=== PATIENT | female | born 1980 | race Hispanic/Latino ===

== ENCOUNTER 2018-11-17 21:50 | Emergency (ER) | payer MEDICAID, OTHER ==
--- NOTE | 2018-11-17 22:40 | Emergency Department Report ---
<GILLIAN BRADSHAW - Last Filed: 11/18/18 04:31> ED Psych HPI - General Chief Complaint: Psych Stated Complaint: MH EVALUATION Time Seen by Provider: 11/17/18 22:15 - Related Data Home Medications Medication Instructions Recorded Confirmed Last Taken Amitriptyline HCl 25 mg PO HS 11/18/18 11/18/[address] [Collins OGMEZ] 500 mg PO BID 11/18/18 11/18/18 Unknown Gabapentin [Gralise] 600 mg PO TID 11/18/18 11/18/18 Unknown QUEtiapine [SEROquel] 100 mg PO HS 11/18/18 11/18/18 Unknown Allergies Allergy/AdvReac Type Severity Reaction Status Date / Time No Known Allergies Allergy Unverified 06/18/14 17:07 ED Past Medical Hx - Medications Home Medications: Home Medications Medication Instructions Recorded Confirmed Last Taken Type Amitriptyline HCl 25 mg PO HS 11/18/18 11/18/[address] [Collins GOMEZ] 500 mg PO BID 11/18/18 11/18/18 Unknown History Gabapentin [Gralise] 600 mg PO TID 11/18/18 11/18/18 Unknown History QUEtiapine [SEROquel] 100 mg PO HS 11/18/18 11/18/18 Unknown History ED Medical Decision Making - Lab Data Result diagrams: 11/17/18 22:38 11/17/18 22:38 - Medical Decision Making Patient given outpatient services for follow-up ED Disposition Clinical Impression: Acute paranoia, Drug-induced paranoid state Disposition: DC-01 TO HOME OR SELFCARE Is pt being admited?: No Does the pt Need Aspirin: No Condition: Stable Additional Instructions: return if worse or if hearing voices telling her to harm himself or others Also return if there are any auditory or visual hallucinations Referrals: GREGORY ARTIS MD [Primary Care Provider] - 3-5 Days [facility] [Outside] - 3-5 Days Time of Disposition: 04:33 <JOEY HOLLIS - Last Filed: 11/18/18 20:54> ED Psych HPI - General Source: patient, family Mode of arrival: Ambulatory - History of Present Illness Initial Comments: 38-year-old female with history of bipolar disorder, schizophrenia, seizure disorder presents to ED with paranoia over the last week. Patient recently restarted amitriptyline, which she has not taken in the last 4 months because it would make her "feel funny." Significant other states patient has been extremely paranoid; believes he is cheating on her, she also believes someone else is in the house watching her. Patient reports visual and auditory hallucinations, however will not say what they are. When asked if she is having any suicidal or homicidal ideations, patient responds, "I don't know I don't know." Patient denied SI and HI to her nurse. MD Complaint: other (paranoia) -: week(s) (1) Associated Psychiatric Symptoms: auditory hallucinations, visual hallucinations Quality: constant Improves With: none Worsens With: none Context: new medication(s) (amitriptyline) Associated Symptoms: denies other symptoms Treatments Prior to Arrival: none ED Review of Systems ROS: Stated complaint: MH EVALUATION Other details as noted in HPI Comment: All other systems reviewed and negative Psychiatric: auditory hallucinations, visual hallucinations, other (reports paranoia; pt vague with whether or not she is homicidal or suicidal) ED Past Medical Hx - Surgical History Additional Surgical History: tubal ligation. cyst removed from tailbone - Social History Smoking Status: Current Every Day Smoker Substance Use Type: Alcohol ED Physical Exam - General Limitations: No Limitations General appearance: alert, in no apparent distress - Head Head exam: Present: atraumatic, normocephalic - Eye Eye exam: Present: normal appearance - ENT ENT exam: Present: mucous membranes moist - Neck Neck exam: Present: normal inspection - Respiratory Respiratory exam: Present: normal lung sounds bilaterally. Absent: respiratory distress - Cardiovascular Cardiovascular Exam: Present: regular rate, normal rhythm - GI/Abdominal GI/Abdominal exam: Absent: distended - Extremities Exam Extremities exam: Present: normal inspection - Neurological Exam Neurological exam: Present: alert, oriented X3 - Psychiatric Psychiatric exam: Present: anxious - Skin Skin exam: Present: warm, dry, intact, normal color ED Course Vital Signs 11/17/18 11/17/18 11/18/18 22:19 23:01 01:26 Temperature 98.5 F 98.6 F Pulse Rate 83 84 Respiratory 18 18 20 Rate Blood Pressure 99/66 Blood Pressure 120/73 [Right] O2 Sat by Pulse 96 96 100 Oximetry ED Medical Decision Making - Lab Data Result diagrams: 11/17/18 22:38 11/17/18 22:38 - Medical Decision Making 38 yo F brought in by family for mental health evaluation. Pt has been paranoid, reportedly having seizures, and is noncompliant with medications. No seizure activity here in ED. Depakote level was low, so pt was given a dose of depakote. Pt denied SI or HI during triage, but would not answer when I asked. Labs unremarkable. Family at bedside. Patient medically clear for mental health evaluation. Will dispo per psych. - Differential Diagnosis bipolar, schizophrenia, paranoia Critical care attestation.: If time is entered above; I have spent that time in minutes in the direct care of this critically ill patient, excluding procedure time.
[2018-11-17 22:53] LABS: Basophils # (Auto) 0.1 K/mm3 (0.0-0.1); Basophils % (Auto) 1.1 % (0.0-1.8); Eosinophils # (Auto) 0.2 K/mm3 (0.0-0.4); Eosinophils % (Auto) 2.2 % (0.0-4.3); Hematocrit 42.4 % (30.3-42.9); Lymphocytes # (Auto) 3.3 K/mm3 (1.2-5.4); Lymphocytes % (Auto) 38.8 % (13.4-35.0); Mean Corpuscular HGB Conc 33 % (30-34); Mean Corpuscular Volume 82 fl (79-97); Monocytes # (Auto) 0.4 K/mm3 (0.0-0.8); Monocytes % (Auto) 4.5 % (0.0-7.3); Platelet Count 314 K/mm3 (140-440); Red Blood Count 5.18 M/mm3 (3.65-5.03); Red Cell Distribution Width 16.2 % (13.2-15.2)
[2018-11-17 23:14] LABS: BUN/Creatinine Ratio 11; Blood Urea Nitrogen 9 mg/dL (7-17); Calcium 9.4 mg/dL (8.4-10.2); Hemolysis Index 8
[2018-11-17 23:34] LABS: Benzodiazepines Screen,Urine PRESUMPTIVE NEGATIVE; Cocaine Screen,Urine PRESUMPTIVE NEGATIVE; Methadone Screen,Urine PRESUMPTIVE NEGATIVE; Opiate Screen,Urine PRESUMPTIVE NEGATIVE
[2018-11-17 23:47] LABS: Amphetamine Screen,Urine PRESUMPTIVE POSITIVE; Cannabinoid Screen,Urine PRESUMPTIVE POSITIVE
[2018-11-18] MEDS ORDERED: IBUPROFEN PO ONE (01:32)
[2018-11-18 02:34] LABS: HCG Qualitative,Urine Negative (Negative)
[2018-11-18 02:40] LABS: Bilirubin,Urine NEG (Negative); Blood,Urine NEG (Negative); Color,Urine Yellow (Yellow); Mucus,Urine 3+ /HPF
[2018-11-18 03:24] VITALS: BP 120/73
== END 2018-11-18 04:43 | disposition home or self-care (01) ==
LOC: ED 21:50
DX: F22 Delusional disorders (principal); F17.200 Nicotine dependence, unspecified, uncomplicated; Z79.899 Other long term (current) drug therapy; F31.9 Bipolar disorder, unspecified; F20.9 Schizophrenia, unspecified; G40.909 Epilepsy, unspecified, not intractable, without status epilepticus
CPT/HCPCS: 36415; 80048; 80164; 80307; 80320; 81001; 81025; 85025; 87086; G0480

== ENCOUNTER 2019-01-01 15:24 | Emergency (ER) | payer OTHER ==
--- NOTE | 2019-01-01 15:45 | Emergency Department Report ---
Blank Doc - Documentation Documentation: This is a 38-year-old female that presents with lethargy and does not want to answer questions. HX of bipolar and schizophrenia. Mother stated has been talking to self and doing sign languages. Stated has not been taking her medications. Denies any SI/HI. Exam: Patient is A/O x3. Answering all questions and demands. This initial assessment/diagnostic orders/clinical plan/treatment(s) is/are subject to change based on patient's health status, clinical progression and re- assessment by fellow clinical providers in the ED. Further treatment and workup at subsequent clinical providers discretion. Patient/guardians urged not to elope from the ED as their condition may be serious if not clinically assessed and managed. Initial orders include: 1- Patient sent to MAIN ED for further evaluation and treatment 2- seam sewer was notified to have patient be brought back [facility]. 3- RN was notified to keep patient as close range and observation until room available
--- NOTE | 2019-01-01 16:42 | Emergency Department Report ---
HPI - General Chief Complaint: Psych Time Seen by Provider: 01/01/19 15:41 - HPI HPI: Room 11 The patient is a 38-year-old female presenting with a chief complaint of odd behavior. The patient presents with her mother who states that she was informed of the patient began behaving on yesterday. She states that the patient wasn't talking as much as she normally does or refusing to communicate. The patient also was making gesticulations with her hands as though she was using sign language. Patient intermittently answers questions and interview but denies suicidal or homicidal ideation. Patient denies visual hallucinations but will not answer when asked about auditory hallucinations. The mother states patient has had a similar presentation in the past for which she was [facility] Past Medical Hx - Past Medical History Hx Seizures: Yes Additional medical history: Schizophrenia/Bipolar - Surgical History Past Surgical History?: No Additional Surgical History: tubal ligation. cyst removed from tailbone - Family History Family history: no significant - Social History Smoking Status: Current Every Day Smoker Substance Use Type: Alcohol (rarely), Marijuana - Medications Home Medications: Home Medications Medication Instructions Recorded Confirmed Last Taken Type Amitriptyline HCl 25 mg PO HS 11/18/18 01/01/[address] [Collins GOMEZ] 1,000 mg PO BID 11/18/18 01/01/19 Unknown History Gabapentin [Gralise] 300 mg PO BID 11/18/18 01/01/19 Unknown History QUEtiapine [SEROquel] 100 mg PO HS 11/18/18 01/01/19 Unknown History ED Review of Systems ROS: Stated complaint: PYSCH Other details as noted in HPI Constitutional: no symptoms reported Eyes: denies: eye pain ENT: denies: throat pain Respiratory: no symptoms reported Cardiovascular: denies: chest pain Endocrine: no symptoms reported Gastrointestinal: denies: abdominal pain Neurological: denies: headache Psychiatric: denies: visual hallucinations, homicidal thoughts, suicidal thoughts Physical Exam - Physical Exam Vital Signs: Vital Signs 01/01/19 15:42 Temperature 98.3 F Pulse Rate 84 Respiratory 18 Rate Blood Pressure 109/80 O2 Sat by Pulse 97 Oximetry Physical Exam: GENERAL: The patient is well-developed well-nourished female lying on stretcher not appearing to be in acute distress. Response verbally occasionally at other times attempts to use her hands HEENT: Normocephalic. Atraumatic. Extraocular motions are intact. Patient has moist mucous membranes. NECK: Supple. Trachea midline CHEST/LUNGS: Clear to auscultation. There is no respiratory distress noted. HEART/CARDIOVASCULAR: Regular. There is no tachycardia. There is no gallop rub or murmur. ABDOMEN: Abdomen is soft, nontender. Patient has normal bowel sounds. There is no abdominal distention. SKIN: There is no rash. There is no edema. There is no diaphoresis. NEURO: The patient is awake and alert. The patient is intermittently danny ative. The patient has no focal neurologic deficits. The patient has normal speech MUSCULOSKELETAL:There is no evidence of acute injury. ED Course Vital Signs 01/01/19 15:42 Temperature 98.3 F Pulse Rate 84 Respiratory 18 Rate Blood Pressure 109/80 O2 Sat by Pulse 97 Oximetry ED Medical Decision Making - Lab Data Result diagrams: 01/01/19 17:20 01/01/19 17:20 Laboratory Tests 01/01/19 01/01/19 01/01/19 17:20 17:20 17:20 WBC 7.2 RBC 4.79 Hgb 13.4 Hct 40.1 MCV 84 MCH 28 MCHC 33 RDW 17.1 H Plt Count 255 Lymph % (Auto) 32.3 [place] % (Auto) 6.5 Eos % (Auto) 2.6 Baso % (Auto) 1.2 Lymph # 2.3 [place] # 0.5 Eos # 0.2 Baso # 0.1 Seg Neutrophils % 57.4 Seg Neutrophils # 4.2 Sodium 143 Potassium 4.2 Chloride 107.2 H Carbon Dioxide 20 L Anion Gap 20 BUN 18 H Creatinine 0.7 Estimated GFR > 60 BUN/Creatinine Ratio 26 Glucose 89 Calcium 9.3 HCG, Qual Urine Color Urine Turbidity Urine pH Ur Specific [place] Urine Protein Urine Glucose (UA) Urine Ketones Urine Blood Urine Nitrite Urine Bilirubin Urine Urobilinogen Ur Leukocyte Esterase Urine WBC (Auto) Urine RBC (Auto) U Epithel Cells (Auto) Urine Mucus Salicylates < 0.3 L Urine Opiates Screen Urine Methadone Screen Acetaminophen Ur Barbiturates Screen Valproic Acid 29.3 L Ur Phencyclidine Scrn Ur Amphetamines Screen U Benzodiazepines Scrn Urine Cocaine Screen U Marijuana (THC) Screen Drugs of Abuse Note Plasma/Serum Alcohol 01/01/19 01/01/19 01/01/19 17:20 17:20 17:20 WBC RBC Hgb Hct MCV MCH MCHC RDW Plt Count Lymph % (Auto) [place] % (Auto) Eos % (Auto) Baso % (Auto) Lymph # [place] # Eos # Baso # Seg Neutrophils % Seg Neutrophils # Sodium Potassium Chloride Carbon Dioxide Anion Gap BUN Creatinine Estimated GFR BUN/Creatinine Ratio Glucose Calcium HCG, Qual Negative Urine Color Urine Turbidity Urine pH Ur Specific [place] Urine Protein Urine Glucose (UA) Urine Ketones Urine Blood Urine Nitrite Urine Bilirubin Urine Urobilinogen Ur Leukocyte Esterase Urine WBC (Auto) Urine RBC (Auto) U Epithel Cells (Auto) Urine Mucus Salicylates Urine Opiates Screen Urine Methadone Screen Acetaminophen < 5.0 L Ur Barbiturates Screen Valproic Acid Ur Phencyclidine Scrn Ur Amphetamines Screen U Benzodiazepines Scrn Urine Cocaine Screen U Marijuana (THC) Screen Drugs of Abuse Note Plasma/Serum Alcohol < 0.01 01/01/19 01/01/19 Unknown Unknown WBC RBC Hgb Hct MCV MCH MCHC RDW Plt Count Lymph % (Auto) [place] % (Auto) Eos % (Auto) Baso % (Auto) Lymph # [place] # Eos # Baso # Seg Neutrophils % Seg Neutrophils # Sodium Potassium Chloride Carbon Dioxide Anion Gap BUN Creatinine Estimated GFR BUN/Creatinine Ratio Glucose Calcium HCG, Qual Urine Color Delmy Urine Turbidity Slightly-cloudy Urine pH 5.0 Ur Specific [place] 1.032 H Urine Protein 30 mg/dl Urine Glucose (UA) Neg Urine Ketones Tr Urine Blood Lg Urine Nitrite Neg Urine Bilirubin Neg Urine Urobilinogen < 2.0 Ur Leukocyte Esterase Tr Urine WBC (Auto) 9.0 H Urine RBC (Auto) 15.0 U Epithel Cells (Auto) 7.0 Urine Mucus 2+ Salicylates Urine Opiates Screen Presumptive negative Urine Methadone Screen Presumptive negative Acetaminophen Ur Barbiturates Screen Presumptive negative Valproic Acid Ur Phencyclidine Scrn Presumptive negative Ur Amphetamines Screen Presumptive negative U Benzodiazepines Scrn Presumptive negative Urine Cocaine Screen Presumptive negative U Marijuana (THC) Screen Presumptive positive Drugs of Abuse Note Disclamer Plasma/Serum Alcohol - Radiology Data Radiology results: report reviewed (CT head), image reviewed (CT head) [facility] [address] [place] [address] Cat Scan Report Signed Patient: ADONIS WATERMAN MR#: [id number] : [birth year] Acct:[id number] Age/Sex: 38 / F ADM Date: 01/01/19 Loc: ED Attending Dr: Ordering Physician: ISAC KEYS MD Date of Service: 01/01/19 Procedure(s): CT head/brain wo con Accession Number(s): [id number] cc: ISAC KEYS MD CT head/brain wo con INDICATION / CLINICAL INFORMATION: 38 years Female; not talking, odd behavior. TECHNIQUE: Routine CT head without contrast. All CT scans at this location are performed using CT dose reduction for ALARA by means of automated exposure control. COMPARISON: The study is compared to the previous exam of 05/22/2015. FINDINGS: BRAIN / INTRACRANIAL CONTENTS: The brain appears to demonstrate appropriate attenuation without significant interval change from the previous CT. The ventricular system remains appropriate in size and configuration. There is no clear CT evidence of acute intracranial hemorrhage or significant mass effect. ORBITS: No significant abnormality of visualized orbits. SINUSES / MASTOIDS: No significant abnormality the visualized paranasal sinuses or mastoid air cells. CRANIOCERVICAL JUNCTION: No significant abnormality. ADDITIONAL FINDINGS: None. IMPRESSION: 1. There is no CT evidence of acute intracranial process. Signer Name: Charles Chu MD Signed: 01/01/2019 8:47 PM Workstation Name: [id number] Transcribed By: MR Dictated By: Charles Chu MD Electronically Authenticated By: Charles Chu MD Signed Date/Time: 01/01/192046 DD/ 43 TD/TT: - Differential Diagnosis schizophrenia Critical care attestation.: If time is entered above; I have spent that time in minutes in the direct care of this critically ill patient, excluding procedure time. ED Disposition Clinical Impression: Schizophrenia Disposition: DC/TX-65 PSY HOSP/PSY UNIT Is pt being admited?: No Does the pt Need Aspirin: No Condition: Stable Referrals: KALLIE ELIAS [Other] - 3-5 Days
[2019-01-01 17:05] LABS: Bilirubin,Urine NEG (Negative); Blood,Urine LG (Negative); Color,Urine Amber (Yellow); Mucus,Urine 2+ /HPF; Urobilinogen,Urine < 2.0 mg/dL (<2.0)
[2019-01-01 17:08] LABS: Amphetamine Screen,Urine PRESUMPTIVE NEGATIVE; Benzodiazepines Screen,Urine PRESUMPTIVE NEGATIVE; Cocaine Screen,Urine PRESUMPTIVE NEGATIVE; Methadone Screen,Urine PRESUMPTIVE NEGATIVE; Opiate Screen,Urine PRESUMPTIVE NEGATIVE
[2019-01-01 17:30] LABS: Cannabinoid Screen,Urine PRESUMPTIVE POSITIVE
[2019-01-01 18:06] LABS: Basophils # (Auto) 0.1 K/mm3 (0.0-0.1); Basophils % (Auto) 1.2 % (0.0-1.8); Eosinophils # (Auto) 0.2 K/mm3 (0.0-0.4); Eosinophils % (Auto) 2.6 % (0.0-4.3); Hematocrit 40.1 % (30.3-42.9); Hemoglobin 13.4 gm/dl (10.1-14.3); Lymphocytes # (Auto) 2.3 K/mm3 (1.2-5.4); Lymphocytes % (Auto) 32.3 % (13.4-35.0); Mean Corpuscular HGB Conc 33 % (30-34); Mean Corpuscular Volume 84 fl (79-97); Monocytes # (Auto) 0.5 K/mm3 (0.0-0.8); Monocytes % (Auto) 6.5 % (0.0-7.3); Platelet Count 255 K/mm3 (140-440); Red Blood Count 4.79 M/mm3 (3.65-5.03); Red Cell Distribution Width 17.1 % (13.2-15.2)
[2019-01-01 18:13] LABS: BUN/Creatinine Ratio 26; Blood Urea Nitrogen 18 mg/dL (7-17); Calcium 9.3 mg/dL (8.4-10.2); Hemolysis Index 15
--- NOTE | 2019-01-01 20:52 | Cat Scan Report ---
CT head/brain wo con INDICATION / CLINICAL INFORMATION: 38 years Female; not talking, odd behavior. TECHNIQUE: Routine CT head without contrast. All CT scans at this location are performed using CT dos e reduction for ALARA by means of automated exposure control. COMPARISON: The study is compared to the previous exam of 05/22/2015. FINDINGS: BRAIN / INTRACRANIAL CONTENTS: The brain appears to demonstrate appropriate attenuation without signi ficant interval change from the previous CT. The ventricular system remains appropriate in size and c onfiguration. There is no clear CT evidence of acute intracranial hemorrhage or significant mass effe ct. ORBITS: No significant abnormality of visualized orbits. SINUSES / MASTOIDS: No significant abnormality the visualized paranasal sinuses or mastoid air cells. CRANIOCERVICAL JUNCTION: No significant abnormality. ADDITIONAL FINDINGS: None. IMPRESSION: 1. There is no CT evidence of acute intracranial process. Signer Name: Charles Chu MD Signed: 01/01/2019 8:47 PM Workstation Name: [id number]
[2019-01-01] MEDS ORDERED: QUEtiapine 100 MG TAB PO SCH (23:00)
[2019-01-01] MEDS ORDERED: AMITRIPTYLINE 25 MG TAB PO SCH (23:00)
[2019-01-01] MEDS: DIVALPROEX DR 500 MG TAB PO SCH (23:47)
[2019-01-01] MEDS: GABAPENTIN 300 MG CAP PO SCH (23:48)
[2019-01-02 09:20] LABS: Alanine Aminotransferase 16 units/L (7-56)
[2019-01-02] MEDS ORDERED: GABAPENTIN 300 MG PO SCH (10:00)
[2019-01-02] MEDS: GABAPENTIN 300 MG CAP PO SCH (11:41)
[2019-01-02] MEDS: DIVALPROEX DR 500 MG TAB PO SCH (11:41)
--- NOTE | 2019-01-02 12:13 | Consultation ---
History of Present Illness - Reason for Consult Consult date: 01/02/19 Reason for consult: Mental Health Evaluation Requesting physician: ISAC KEYS - Chief Complaint Chief complaint: "I don't know what's wrong" - History of Present Psychiatric Illness 38 y.o. white female who presented to the ER for bizarre behavior. Today the patient was calm, but somewhat disorganized during the assessment. She was adamant about being "a mean person." She was asked to explain what she meant by being "mean", her answer wasn't logical. Throughout the interview, the patient appeared to be preoccupied. She stated that she was seeing "something" on the ceiling throughout the night. Per collateral information from the patient's mother Annamaria Mondragon, she stated that the patient's bizarre behavior have gotten worse. She stated that the patient is seen at [facility] for outpatient psy services. The patient denies SI/HI's and AVH's. She denies a poor appetite, but acknowledged "poor sleep." The patient denies alcohol consumption (etoh) and recreational drug use, but she was positive for marijuana. Medications and Allergies Allergies Allergy/AdvReac Type Severity Reaction Status Date / Time No Known Allergies Allergy Unverified 06/18/14 17:07 Home Medications Medication Instructions Recorded Confirmed Last Taken Type Amitriptyline HCl 25 mg PO 11/18/18 01/01/[address] [Collins DEXTER] 1,000 mg PO BID 11/18/18 01/01/19 Unknown History Gabapentin [Gralise] 300 mg PO BID 11/18/18 01/01/19 Unknown History QUEtiapine [SEROquel] 100 mg PO 11/18/18 01/01/19 Unknown History Active Meds: Active Medications Amitriptyline HCl (Elavil) 25 mg PO QHS [facility] Last Admin: 01/01/19 23:48 Dose: 25 mg Documented by: Divalproex Sodium (Collins Dexter) 1,000 mg PO BID [facility] Last Admin: 01/02/19 11:41 Dose: 1,000 mg Documented by: Gabapentin (Gabapentin) 300 mg PO BID [facility] Last Admin: 01/02/19 11:41 Dose: 300 mg Documented by: Quetiapine Fumarate (Seroquel) 100 mg PO [facility] Last Admin: 01/01/19 23:48 Dose: 100 mg Documented by: Past psychiatric history - Past Medical History Past Medical History: No medical history Past Surgical History: No surgical history - past Psychiatric treatment and history psychiatric treatment history: Hx of mood do per the patient. Denies a fam psy hx. - Social History Social history: lives with family Mental Status Exam - Vital signs Last Vital Signs Temp 98 F 01/02/19 11:14 Pulse 94 H 01/02/19 11:14 Resp 20 01/02/19 11:14 BP 101/78 01/02/19 11:14 Pulse Ox 98 01/02/19 11:14 - Exam Narrative exam: MSE: Appearance: in hospital attire Behavior: regular eye contact Speech: regular rate and tone Mood: preoccupied Affect: congruent to mood Thought Process: circumstantial Thought Content: denies SI/HI's and AVH's, delusional Motor Activity: sitting up in bed Cognition: A/O x3 Insight: poor Judgment: poor Results Result Diagrams: 01/01/19 17:20 01/01/19 17:20 Abnormal lab results 01/01/19 01/01/19 01/01/19 Range/Units 17:20 17:20 17:20 RDW 17.1 H (13.2-15.2) % Chloride 107.2 H (98-107) mmol/L Carbon Dioxide 20 L (22-30) mmol/L BUN 18 H (7-17) mg/dL Ur Specific [place] (1.003-1.030) Urine WBC (Auto) (0.0-6.0) /HPF Salicylates < 0.3 L (2.8-20.0) mg/dL Acetaminophen (10.0-30.0) ug/mL Valproic Acid 29.3 L (50-100) ug/mL 01/01/19 01/01/19 Range/Units 17:20 Unknown RDW (13.2-15.2) % Chloride (98-107) mmol/L Carbon Dioxide (22-30) mmol/L BUN (7-17) mg/dL Ur Specific [place] 1.032 H (1.003-1.030) Urine WBC (Auto) 9.0 H (0.0-6.0) /HPF Salicylates (2.8-20.0) mg/dL Acetaminophen < 5.0 L (10.0-30.0) ug/mL Valproic Acid (50-100) ug/mL All other labs normal. 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 Today the patient was preoccupied during the assessment. DDx: Bipolar DO, Substance Induced Mood/Psychotic DO Recommendation/Plan: Continue 1013 and Depakote 1000 mg PO BID mood/seizures and modify Seroquel to 200 mg PO HS for mood/psychosis. Discussed possible metabolic side effects of Seroquel with the patient, she verbalized understanding. Baseline A1c/Lipid Panel was ordered for the AM. Dispo: The patient was referred to inpatient psy services. Staffed with Dr. Theodora Romero.
[2019-01-02 20:24] VITALS: BP 124/98
[2019-01-02] MEDS ORDERED: QUEtiapine 200 MG TAB PO SCH (22:00)
[2019-01-02] MEDS ORDERED: AMITRIPTYLINE HCL 25 MG PO SCH (22:00)
== END 2019-01-02 20:42 ==
LOC: ED 15:24
DX: F20.0 Paranoid schizophrenia (principal); F39 Unspecified mood [affective] disorder; F31.9 Bipolar disorder, unspecified; F17.200 Nicotine dependence, unspecified, uncomplicated; F12.10 Cannabis abuse, uncomplicated; Z98.51 Tubal ligation status
CPT/HCPCS: 36415; 70450; 80048; 80164; 80307; 80320; 81001; 82150; 83690; 84075; 84450; 84460; 84703; 85025; 87086; G0480